=== PATIENT | male | born 1965 | race Caucasian/White ===

== ENCOUNTER → 2017-01-18 | Outpatient (CLI) | payer BC | LOC: BMCIMAGING 08:33 | PROVIDERS: ATTEND Internal Medicine | DX: R05 Cough (principal); R91.8 Other nonspecific abnormal finding of lung field ==

== ENCOUNTER → 2017-05-20 | Outpatient (CLI) | payer BC ==
[~2017-05-20] MED LIST: IOPAMIDOL (ISOVUE-300) 100 ML BTL ONE
== END ==
LOC: CIMAGING 11:34
PROVIDERS: ATTEND Surgery
DX: Z12.10 Encounter for screening for malignant neoplasm of intestinal tract, unspecified (principal); Z85.09 Personal history of malignant neoplasm of other digestive organs
CPT/HCPCS: 74177-PO; Q9967

== ENCOUNTER → 2018-05-30 | Outpatient (CLI) | payer BC | LOC: CIMAGING 10:23 | PROVIDERS: ATTEND Surgery | DX: Z03.89 Encounter for observation for other suspected diseases and conditions ruled out (principal) | CPT/HCPCS: 74177-PO; Q9967 ==